=== PATIENT | male | born 2000 | race Caucasian/White ===

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

== ENCOUNTER 2021-05-28 05:36 | Emergency (ER) | payer OTHER ==
[~2021-05-28] VITALS: Ht 180.3 cm; Wt 87.0 kg
[2021-05-28] MEDS ORDERED: BACITRACIN ZINC OINT UDPKT TOP ONE (06:15)
[2021-05-28] MEDS ORDERED: LIDOCAINE HCL/PF 1% 10 MG/ML 5ML VIAL INFIL ONE (06:15)
[2021-05-28] MEDS ORDERED: LIDOCAINE HCL 1% 10 MG/ML 10ML VIAL INJ SCH (06:30)
[2021-05-28] MEDS ORDERED: IBUP-2029 MT (07:24)
[2021-05-28] MEDS ORDERED: CEPH500C2 MT (07:28)
[2021-05-28 07:37] VITALS: BP 112/75
== END 2021-05-28 07:38 | disposition home or self-care (01) ==
LOC: ER 05:36
DX: S61.212A Laceration without foreign body of right middle finger without damage to nail, initial encounter (principal); F12.10 Cannabis abuse, uncomplicated; W26.0XXA Contact with knife, initial encounter; Y93.89 Activity, other specified; Y92.89 Other specified places as the place of occurrence of the external cause; Y99.8 Other external cause status
CPT/HCPCS: 12001; 99283; J3490; Z7610